=== PATIENT | female | born 1955 ===

== ENCOUNTER 2022-09-15 05:54 | Observation (INO) ==
[~2022-09-15 05:54] MED LIST: Naloxone 0.4 mg VIAL 0.4 mg/ml 1 ml VIAL IV PRN; Ondansetron 4 mg VIAL 2 MG/ML 2 ml VIAL IV PRN
[2022-09-15] MEDS ORDERED: Buffered Lidocaine 1% SYRIN 1 ml INTRADERM ONE (06:00)
[2022-09-15] MEDS ORDERED: Lactated Ringers 1000 ml BAG 1,000 ML IV SCH ×2 (06:00→10:00)
[2022-09-15] MEDS ORDERED: Chlorhexidine MOUTHWASH 0.12% 15 ML UDC ONE (06:07)
[2022-09-15] MEDS ORDERED: ceFAZolin *3* GM in NS PREMIX 3 GM/100 ML BAG IV ONE (06:50)
[2022-09-15] MEDS ORDERED: Lidocaine 2% PF 5 ML VIAL ONE (06:51)
[2022-09-15] MEDS ORDERED: Lidocaine 2% w EPI 1:100,000 20 ML MDV VIAL ONE (06:51)
[2022-09-15] MEDS ORDERED: Thrombin 5,000 UNITS 1 APPLIC KIT - topical use - TOPICAL ONE ×2 (06:51→07:12)
[2022-09-15] MEDS ORDERED: Rocuronium 50 mg VIAL 10 mg/ml 5 ml VIAL (50 mg) ONE (06:51)
[2022-09-15] MEDS ORDERED: Midazolam 2 mg/2 ml VIAL 1 mg/ml 2 ml VIAL (2 mg) ONE (06:51)
[2022-09-15] MEDS ORDERED: fentaNYL 100 mcg/2 ml 50 MCG/ML VIAL ONE ×2 (06:51→09:38)
[2022-09-15] MEDS ORDERED: Propofol 10 MG/ML 20 ML BTL ONE (06:51)
[2022-09-15] MEDS ORDERED: Gelfoam Sponge SIZE 100 SPONGE ONE ×2 (06:52→07:12)
[2022-09-15] MEDS ORDERED: ceFAZolin VIAL VIAL ONE ×2 (07:12→07:27)
[2022-09-15 07:25] LABS: Activated Partial Thrombo Time 31.8 seconds (26.0-38.0); INR 1.07 (0.88-1.18)
[2022-09-15] MEDS ORDERED: Dexamethasone IV 4 MG/ML VIAL 1 ml VIAL ONE (07:56)
[2022-09-15] MEDS ORDERED: Ondansetron 4 mg VIAL 2 MG/ML 2 ml VIAL ONE (07:57)
[2022-09-15] MEDS ORDERED: fentaNYL 250 mcg/5 ml 50 MCG/ML 5 ml VIAL (250 MCG) ONE (07:58)
[2022-09-15] MEDS ORDERED: Acetaminophen IV 1 GM/100ML 1,000 MG/100 ML BAG IV ONE (08:02)
[2022-09-15] MEDS ORDERED: Phenylephrine 40 mcg/mL 10mL (400mcg) SYRINGE ONE (09:01)
[2022-09-15] MEDS ORDERED: Ondansetron 4 mg VIAL 2 MG/ML 2 ml VIAL IV PRN (09:16)
[2022-09-15] MEDS ORDERED: Magnesium Hydroxide LIQ 30 ML UDC PO PRN (09:16)
[2022-09-15] MEDS: fentaNYL 100 mcg/2 ml 50 MCG/ML VIAL IV PRN ×4 (09:40→10:30)
[2022-09-15] MEDS: HYDROcodone/ACETAMIN 5/325 mg TAB PO PRN ×4 (11:00→22:35)
[2022-09-15] MEDS ORDERED: HYDROcodone/ACETAMIN 5/325 mg TAB ONE (11:00)
[2022-09-15] MEDS ORDERED: Pneumococcal Vac 23-Polyvalent IM ONE (15:00)
[2022-09-15] MEDS ORDERED: Morphine 2 MG/ML SYRINGE IV PRN (16:27)
[2022-09-15] MEDS: DULoxetine DR 60 mg CAP PO SCH (20:49)
[2022-09-16] MEDS: HYDROcodone/ACETAMIN 5/325 mg TAB PO PRN ×2 (02:38→07:44)
[2022-09-16 07:30] VITALS: BP 131/76
[2022-09-16] MEDS: DULoxetine DR 60 mg CAP PO SCH (07:45)
[2022-09-16] MEDS ORDERED: Cholecalciferol (VIT D3) 1,000 unit TAB PO SCH (09:00)
[2022-09-16] MEDS ORDERED: Pneumococcal Vac 23-Polyvalent IM ONE (09:00)
== END 2022-09-16 11:10 | disposition home or self-care (01) ==
LOC: SSU → INTOOBSV 05:54 → AA 05:54
PROVIDERS: ADMIT Neurological Surgery; ATTEND Neurological Surgery